=== PATIENT | female | born 1995 | race African-American/Black ===

== ENCOUNTER 2016-06-12 11:34 | Emergency (ER) | payer OTHER | END 2016-06-12 13:35 | disposition home or self-care (01) | LOC: ER 11:34 | DX: R07.89 Other chest pain (principal); R20.2 Paresthesia of skin; R03.0 Elevated blood-pressure reading, without diagnosis of hypertension; R11.0 Nausea; R05 Cough; J45.909 Unspecified asthma, uncomplicated | CPT/HCPCS: 36415; 96374; J1885 ==